=== PATIENT | male | born 1935 | race Caucasian/White ===

== ENCOUNTER 2016-12-19 18:42 | Emergency (ER) | payer MEDICARE ==
[~2016-12-19] VITALS: Ht 180.3 cm; Wt 74.8 kg
[~2016-12-19 18:42] MED LIST: ALLO100T PO; FURO-81 PO; HYDR-3014 PO; LISI-410 PO; POTA20TA14 PO; TAMS0.4C2 PO
--- NOTE | 2016-12-19 18:47 | NUR ---
ct patient to ct
--- NOTE | 2016-12-19 18:54 | NUR ---
RETURN TO ROOM PATEINT RETURNED TO ROOM
[2016-12-19 19:10] LABS: BASOPHIL % 0.7 % (0.0-0.2); EOSINOPHIL # 0.1 10^3/uL (0.0-0.2); EOSINOPHIL % 2.2 % (0.0-5.0); HEMATOCRIT 42.1 % (37.0-53.0); HEMOGLOBIN 14.5 g/dL (13.9-16.3); LYMPHOCYTES # 2.1 10^3/uL (1.0-4.8); MEAN CELL HGB 31.7 pg (26-34); MEAN CELL HGB CONCENTRATION 34.4 g/dL (33-37); MEAN CORP VOLUME 92.1 fL (78-100); MEAN PLATELET VOLUME 9.2 fL (7.8-11.0); MONOCYTES # 0.6 10^3/uL (0.3-0.8); MONOCYTES % 12.7 % (5.0-12.0); NEUTROPHIL # 1.7 10^3/uL (1.8-7.7); RED CELL DISTRIBUTION WIDTH 12.8 % (11.5-14.5); WHITE BLOOD CELL 4.6 10^3/uL (4.5-11.0)
--- NOTE | 2016-12-19 19:24 | DIREP ---
PROCEDURE:CHEST 1 VIEW COMPARISON:[facility], CR, XRAY CHEST 2 VWS, 04/12/2016, 04:43 PM. INDICATIONS:CVA R FINDINGS: LUNGS/PLEURA:No significant pulmonary parenchymal abnormalities. No effusions. Lungs are clear. No pneumonia, heart failure or effusions are seen. VASCULATURE:Normal. Unremarkable pulmonary vasculature. CARDIAC:Normal. No cardiac silhouette abnormality or cardiomegaly. Bipolar pacemaker from the left side. MEDIASTINUM:Normal. No visible mass or adenopathy. BONES:Significant DJD in both shoulders. Question chronic subluxation or dislocation with deformity of the right humeral head fracture of the midshaft of the left clavicle, unchanged since the last study. OTHER:Negative. CONCLUSION:No active disease. No change since last study. Dictated by: Emmanuel Sesay MD on 12/19/2016 at 07:23 PM
--- NOTE | 2016-12-19 19:32 | DIREP ---
PROCEDURE:CT HEAD OR BRAIN W/O CONTRAST COMPARISON:[facility], CT, CT HEAD BRAIN W/O CONTRAST, 11/29/2015, 02:03 PM. [facility], CT, CT HEAD BRAIN W/O CONTRAST, 04/12/2016, 04:44 PM. INDICATIONS:CVA R TECHNIQUE:CT images were created without intravenous contrast. The study was reviewed on brain, subdural and bone windows. FINDINGS: VENTRICLES:Ventriculomegaly with moderate atrophy and moderate white matter changes in the periventricular and the subcortical white matter which may be secondary to small vessel disease and old aging. CEREBRUM:Ectatic internal carotid arteries as well as the vertebrobasilar arteries. No evidence for unilateral hyperdense MCA sign is seen. No hyperdense venous sinus, effacement of sulci, loss of insular cortex or loss of lenticular nucleus is seen. Focal leukomalacia identified adjacent to the left lateral ventricles, question old ischemic change. This appears to be unchanged since last study of 04/12/2016. Focal infarct is also seen in the left parasagittal parietal convexity as seen on image number 25. No evidence for an acute infarct, bleed or mass lesion is seen. No acute or chronic epidural, subdural or subarachnoid hemorrhage is seen. No edema, midline shift or increased intracranial pressure is seen. Calcifications in the left basal ganglia. CEREBELLUM:Negative. BRAINSTEM:Negative. BASAL CISTERNS:Negative. HEMORRHAGE:No MASS LESION:No ACUTE INFARCT:No SKULL:Normal. SINUSES:Normal. OTHER:None CONCLUSION:Old infarct adjacent to the left lateral ventricle and in the left parietal convexity. No acute infarct, bleed or mass lesion is seen. No significant change since last study of 04/12/2016. Suggest a follow-up MRI of the brain. Dictated by: Emmanuel Sesay MD on 12/19/2016 at 07:27 PM
[2016-12-19 19:36] LABS: ALANINE AMINOTRANSFERASE 19 U/L (12-78); ALKALINE PHOSPHATASE 91 U/L (50-136); ASPARTATE AMINO TRANSFERASE 20 U/L (0-35); CALCIUM 8.8 mg/dL (8.4-10.5); CARBON DIOXIDE 29.6 mmol/L (20.0-32); GLUCOSE 98 mg/dL (70-110)
--- NOTE | 2016-12-19 19:48 | ER.PDOC ---
General Chief Complaint: Stroke Symptoms Stated Complaint: LOSS OF VISION IN LEFT EYE Time seen by MD: 19:45 Source: patient Exam Limitations: no limitations History of Present Illness Initial Comments Loss of vision in the left eye about 6 hours ago. Things appearing blurry. No new weakness. Severity: moderate Usually: orientedx3 Allergies: Coded Allergies: No Known Allergies (Unverified , 07/26/15) Home Meds Active Scripts Potassium Chloride (POTASSIUM CHLORIDE) 20 Meq Tab.er.prt, 1 TAB PO DAILY for SUPPLEMENT, #30 TAB 4 Refills Prov:EN NICOLE MD 04/16/16 Furosemide (LASIX) 20 Mg Tablet, 20 MG PO DAILY, #30 4 Refills Prov:EN NICOLE MD 04/16/16 Reported Medications Hydrocodone Bit/Acetaminophen (NORCO 10-325) 1 Each Tablet, 1 TAB PO BID Y for PAIN, #60 TAB 07/26/15 Allopurinol (ALLOPURINOL) 100 Mg Tablet, 100 MG PO BID, TABLET 07/21/15 Lisinopril (LISINOPRIL) 20 Mg Tablet, 1 TAB PO DAILY, #30 TAB 5 Refills 07/21/15 Tamsulosin Hcl (TAMSULOSIN HCL) 0.4 Mg Cap.er.24h, 1 CAP PO DAILY, #30 CAP 5 Refills 07/21/15 Past Medical History Medical History: CVA/TIA/stroke, high cholesterol Surgical History: appendectomy, hip Social History Smoking: non-smoker Alcohol Use: other Drug Use: none Review of Systems Constitutional: no symptoms reported Eyes: see HPI Respiratory: no symptoms reported Cardiovascular: no symptoms reported Gastrointestinal: no symptoms reported Genitourinary: no symptoms reported Musculoskeletal: no symptoms reported All Other Systems: Reviewed and Negative Physical Exam General Appearance: alert, no distress HEENT: no apparent trauma, ENT inspection nml, other (Sees things blurry with left eye only) Neuro/Psych: oriented x3, nml speech/cognition, nml mood/affect Cranial Nerves: nml as tested Peripheral Exam: motor nml, sensation nml, reflexes nml Neck: supple, non-tender, no carotid bruit Respiratory: no resp distress, breath sounds nml CVS: reg rate & rhythm, heart sounds nml Abdomen: non-tender, no organomegaly, no distention Skin: color nml, no rash, warm/dry Results/Orders Results/Orders Laboratory Tests Test 12/19/16 19:08 White Blood Count 4.6 10^3/uL (4.5-11.0) Red Blood Count 4.57 10^6/uL (4.50-5.90) Hemoglobin 14.5 g/dL (13.9-16.3) Hematocrit 42.1 % (37.0-53.0) Mean Corpuscular Volume 92.1 fL (78-100) Mean Corpuscular Hemoglobin 31.7 pg (26-34) Mean Corpuscular Hemoglobin Concent 34.4 g/dL (33-37) Red Cell Distribution Width 12.8 % (11.5-14.5) Platelet Count 175 10^3/uL (150-400) Mean Platelet Volume 9.2 fL (7.8-11.0) Neutrophils (%) (Auto) 37.0 % (41.0-85.0) Lymphocytes (%) (Auto) 47.0 % (24.0-44.0) Monocytes (%) (Auto) 12.7 % (5.0-12.0) Neutrophils # (Auto) 1.7 10^3/uL (1.8-7.7) Lymphocytes # (Auto) 2.1 10^3/uL (1.0-4.8) Monocytes # (Auto) 0.6 10^3/uL (0.3-0.8) Absolute Immature Granulocyte (auto 0.02 10^3 u/L (0-2) Eosinophils % 2.2 % (0.0-5.0) Basophils % 0.7 % (0.0-0.2) Basophils # 0.0 10^3/uL (0.0-0.1) Eosinophil Count 0.1 10^3/uL (0.0-0.2) Prothrombin Time 11.1 SEC (9.8-11.9) Prothromb Time International Ratio 1.0 Activated Partial Thromboplast Time 26.7 SEC (24.67-30.72) Sodium Level 138 mmol/L (132-145) Potassium Level 4.1 mmol/L (3.6-5.2) Chloride Level 102.0 mmol/L (96-109) Carbon Dioxide Level 29.6 mmol/L (20.0-32) Anion Gap 10.5 Blood Urea Nitrogen 17 mg/dL (7-18) Creatinine 1.49 mg/dL (0.59-1.40) Estimated GFR () 54.5 BUN/Creatinine Ratio 11.0 Glucose Level 98 mg/dL (70-110) Calculated Osmolality 287.0 Calcium Level 8.8 mg/dL (8.4-10.5) Total Bilirubin 0.6 mg/dL (0.2-1.0) Aspartate Amino Transf (AST/SGOT) 20 U/L (0-35) Alanine Aminotransferase (ALT/SGPT) 19 U/L (12-78) Alkaline Phosphatase 91 U/L (50-136) Total Creatine Kinase 81 U/L (39-308) Creatine Kinase MB 1.4 ng/mL (0.5-3.6) Troponin I < 0.02 ng/mL (0.00-0.05) Total Protein 6.7 g/dL (6.4-8.2) Albumin 3.8 g/dL (3.4-5.0) Globulin 2.9 Percent Immature Gran (Cell Imm) 0.40 % (0.00-0.50) Progress Progress Spoke to Dr. Mcclendon with Tele stroke, recommended that patient be admitted for MRI/MRA and further Neurological evaluation. Patient symptoms started over 6 hours ago. EKG/XRAY/CT/US EKG Comments: Normal XRAY: chest (Nothing acute) CT Comments: No acute intracranial abnormality Departure Time of Disposition: 21:46 Disposition: 02 XFER SHT-TRM HOSP Impression: Primary Impression: CVA (cerebral vascular accident) Qualified Codes: I63.9 - Cerebral infarction, unspecified Condition: Stable Referrals: NORMA COSTA DO (PCP) PRIMARY CARE PROVIDER Comments Transfer to [facility] ED for Dr. Venita GAMING,ASPEN Fowler MD Dec 19, 2016 19:48
--- NOTE | 2016-12-19 20:39 | NUR ---
DR BONNIE SHAWA SPEAKING WITH DR NICOLE , ADMISSION DEFERED TO HOSPITALIST
--- NOTE | 2016-12-19 20:40 | NUR ---
DR MARISELA CLAIRE MBA CALLED DR ANTONIO, LEFT MESSAGE
--- NOTE | 2016-12-19 21:00 | NUR ---
DR MARISELA ANTONIO RECOMMENDS CALLING [facility]
--- NOTE | 2016-12-19 21:05 | NUR ---
TELESTROKE DR GAMING SPEAKING WITH TELESTROKE
--- NOTE | 2016-12-19 21:10 | NUR ---
TELESTROKE RECOMMENDATION RECOMMENDS NO INTERVENTION AT THIS TIME
--- NOTE | 2016-12-19 21:11 | NUR ---
DR MARISELA CLAIRE MBA SLEAKING WITH DR ANTONIO , PATEINT TO BE TRANSFERED TO [facility]
--- NOTE | 2016-12-19 21:20 | NUR ---
[facility] SPEAKING WITH [facility] , DR MONTENEGRO ACCEPTS
--- NOTE | 2016-12-19 21:42 | NUR ---
ems called ems for transfer to [facility]
[2016-12-19] MEDS ORDERED: ASPIRIN ONE (21:52)
[2016-12-19] MEDS ORDERED: ASPIRIN PO STA (21:56)
--- NOTE | 2016-12-19 22:19 | NUR ---
[facility] HERE FOR TRANSFER , REPORT GIVEN
[2016-12-19 22:20] VITALS: BP 160/77
== END 2016-12-19 22:20 | disposition short-term general hospital (02) ==
LOC: ER 18:42
DX: I63.9 Cerebral infarction, unspecified (principal); E78.00 Pure hypercholesterolemia, unspecified; H53.8 Other visual disturbances; Z86.73 Personal history of transient ischemic attack (TIA), and cerebral infarction without residual deficits; Z79.899 Other long term (current) drug therapy
CPT/HCPCS: 70450; 71010; 80053; 82550; 82553; 84484; 85025; 85610; 85730; 93005; 99285

== ENCOUNTER → 2016-12-20 | Outpatient (CLI) | payer MEDICARE ==
--- NOTE | 2016-12-23 16:02 | DIREP ---
PROCEDURE: CAROTID ULTRASOUND COMPARISON: [facility], CT, CT HEAD BRAIN W/O CONTRAST, 2016, 06:54 PM. INDICATIONS: HTN, VISION LOSS TECHNIQUE: Sonographic evaluation of carotid and vertebral arteries was performed together with grayscale, color-flow, and spectral analysis. FINDINGS: RIGHT CCA: PROX: 93.9 cm/s MID: 90.1 cm/s RIGHT ICA: PROX: 59.51 cm/s MID: 65.08 cm/s DIST: 52.25 cm/s RIGHT ECA: 62.72 cm/s RIGHT ICA/CC: 0.72 RIGHT VERTEBRAL: 30.08 cm/s IMAGES: Mild plaque formation identified involving the origin of the internal carotid artery. No critical stenosis is seen. LEFT CCA: PROX: 91.4 cm/s MID: 110.3 cm/s DIST: 63.3 cm/s LEFT ICA: PROX: 67.34 cm/s MID: 60.72 cm/s DIST: 54.61 cm/s LEFT ECA: 52.60 cm/s LEFT ICA/CCA: 0.72 LEFT VERTEBRAL: 53.10 cm/s IMAGES: Mild plaque formation seen involving the mid common carotid artery as well as the origin of the internal carotid artery. No critical stenosis is seen. CONCLUSION: Satisfactory ic/cc ratios. Mild plaque formation involving the origin of the internal carotid arteries bilaterally. No critical stenosis is seen. Diameter Stenosis (%) ICA Peak Systolic Velocity (cm/s) ICA/CCA Ratio Normal <125 <2.0 <50 <125 <2.0 50-69 125-230 2-4 70 to near occlusion >230 >4 J Ultrasound Med 2005; 24:[id number] ld Dictated by: JUAN A Physician on 12/20/2016 at 04:00 PM
== END | disposition home or self-care (01) ==
LOC: RAD 13:13
PROVIDERS: ATTEND Nurse Practitioner
DX: I25.10 Atherosclerotic heart disease of native coronary artery without angina pectoris (principal); I10 Essential (primary) hypertension; H53.122 Transient visual loss, left eye
CPT/HCPCS: 93880

== ENCOUNTER 2017-02-26 11:39 | Emergency (ER) | payer MEDICARE ==
[~2017-02-26] VITALS: Ht 185.4 cm; Wt 85.7 kg
[2017-02-26] MEDS ORDERED: LOSA25TA5 PO (11:47)
--- NOTE | 2017-02-26 11:49 | NUR ---
ARRIVAL PATIENT ARRIVED TO ED3 VIA GURNEY BY [facility], C/O OF WEAKNESS AND DIZZINESS TODAY, DENIES ANY PAIN, DIZZINESS COMES AND GOES BUT WORSE TODAY, EMS CALLED BY NEIGHBORS, PATIENT BROUGHT TO ED FOR FUTHER EVAL, NO DISTRESS NOTED.
[2017-02-26 12:03] LABS: BILIRUBIN,URINE NEGATIVE (NEGATIVE); UROBILINOGEN,URINE NORMAL (NEGATIVE)
[2017-02-26 12:03] LABS: BASOPHIL % 0.4 % (0.0-0.2); EOSINOPHIL # 0.1 10^3/uL (0.0-0.2); EOSINOPHIL % 1.8 % (0.0-5.0); HEMOGLOBIN 13.4 g/dL (13.9-16.3); LYMPHOCYTES # 1.8 10^3/uL (1.0-4.8); LYMPHOCYTES % 39.6 % (24.0-44.0); MEAN CELL HGB 31.3 pg (26-34); MEAN CELL HGB CONCENTRATION 33.5 g/dL (33-37); MEAN CORP VOLUME 93.5 fL (78-100); MEAN PLATELET VOLUME 8.9 fL (7.8-11.0); MONOCYTES # 0.5 10^3/uL (0.3-0.8); NEUTROPHIL # 2.1 10^3/uL (1.8-7.7); NEUTROPHILS % 45.8 % (41.0-85.0); RED CELL DISTRIBUTION WIDTH 13.1 % (11.5-14.5); WHITE BLOOD CELL 4.5 10^3/uL (4.5-11.0)
--- NOTE | 2017-02-26 12:03 | NUR ---
LAB LAB TO ROOM FOR BLOOD DRAW.
[2017-02-26 12:06] LABS: APPEARANCE,URINE CLEAR (CLEAR); UA COLOR YELLOW (YELLOW)
--- NOTE | 2017-02-26 12:26 | NUR ---
CAT SCAN PATIENT TO CAT SCAN VIA GURHUMERA WITH [facility] FROM RADIOLOGY.
[2017-02-26 12:28] LABS: ALANINE AMINOTRANSFERASE 21 U/L (12-78); ALKALINE PHOSPHATASE 81 U/L (50-136); ASPARTATE AMINO TRANSFERASE 23 U/L (0-35); GLUCOSE 129 mg/dL (70-110)
--- NOTE | 2017-02-26 12:38 | NUR ---
CAT SCAN PATIENT BACK FROM CAT SCAN.
--- NOTE | 2017-02-26 12:47 | DIREP ---
PROCEDURE:CHEST X-RAY, AP PORTABLE COMPARISON:[facility], CR, XRAY CHEST SINGLE VW, 12/19/2016, 06:24 PM. [facility], CR, XRAY CHEST SINGLE VW, 11/29/2015, 01:38 PM. INDICATIONS:WEAKNESS AND DIZZINESS FINDINGS: LUNGS/PLEURA:Mild hyperexpansion of lungs without focal airspace opacity. VASCULATURE:Normal. Unremarkable pulmonary vasculature. CARDIAC:The heart is mildly enlarged. A pacemaker is in place from a left subclavian approach. MEDIASTINUM:Normal. No visible mass or adenopathy. BONES:Severe degenerative changes in both shoulders with old fracture of the left clavicle. OTHER:Negative. CONCLUSION: 1. Mild cardiomegaly. No evidence of congestive failure. 2. No active pulmonary disease. 3. Severe degenerative changes of both shoulders. Dictated by: Barney Kim MD on 02/26/2017 at 12:43 PM
--- NOTE | 2017-02-26 13:07 | DIREP ---
PROCEDURE:CT HEAD WITHOUT CONTRAST TECHNIQUE:Axial cuts were obtained through the head, without intravenous contrast material. The images were viewed at brain and bone settings. COMPARISON:[facility], CT, CT HEAD BRAIN W/O CONTRAST, 04/12/2016, 04:44 PM. [facility], CT, CT HEAD BRAIN W/O CONTRAST, 12/19/2016, 06:54 PM. INDICATIONS:DIZZINESS FINDINGS: VENTRICLES:There is mild generalized prominence of the ventricles, sulci, and cisterns. There is no hydrocephalus. CEREBRUM:There is moderate patchy low density in the periventricular white matter of both cerebral hemispheres. There is no CT evidence of mass, hemorrhage, or acute infarct. Old infarctions are seen involving the left periventricular white matter with extending into the centrum semi ovale and in the left occipital lobe. CEREBELLUM:Mild volume loss. BRAINSTEM:Normal. SKULL:Normal. SINUSES:Normal. OTHER:Atherosclerotic calcifications of the carotid siphons are noted. CONCLUSION: 1. Mild generalized atrophy. No evidence of acute abnormality. Old left-sided infarctions noted. 2. Moderate chronic white matter ischemic change. Dictated by: Barney Kim MD on 02/26/2017 at 01:01 PM
--- NOTE | 2017-02-26 13:20 | NUR ---
STATUS PATIENT SITTING UP IN THE BED, FAMILY AT BEDSIDE, NO DISTRESS NOTED.
--- NOTE | 2017-02-26 13:25 | ER.PDOC ---
General Chief Complaint: General Complaint Stated Complaint: WEAKNESS/DIZZINESS TRAVEL OUT OF US: No Time seen by MD: 12:37 Source: patient, EMS Exam Limitations: no limitations History of Present Illness Initial Comments felt weak at home Timing/Duration: 1-3 hours Severity: mild Associated Symptoms: denies symptoms Allergies: Coded Allergies: No Known Allergies (Unverified , 07/26/15) Home Meds Active Scripts Potassium Chloride (POTASSIUM CHLORIDE) 20 Meq Tab.er.prt, 1 TAB PO DAILY for SUPPLEMENT, #30 TAB 4 Refills Prov:EN NICOLE MD 04/16/16 Furosemide (LASIX) 20 Mg Tablet, 20 MG PO DAILY, #30 4 Refills Prov:EN NICOLE MD 04/16/16 Reported Medications Losartan Potassium (LOSARTAN POTASSIUM) 25 Mg Tablet, 1 TAB PO DAILY, #90 TAB 3 Refills 02/26/17 Allopurinol (ALLOPURINOL) 100 Mg Tablet, 100 MG PO BID, TABLET 07/21/15 Tamsulosin Hcl (TAMSULOSIN HCL) 0.4 Mg Cap.er.24h, 1 CAP PO DAILY, #30 CAP 5 Refills 07/21/15 Discontinued Reported Medications Hydrocodone Bit/Acetaminophen (NORCO 10-325) 1 Each Tablet, 1 TAB PO BID Y for PAIN, #60 TAB 07/26/15 Lisinopril (LISINOPRIL) 20 Mg Tablet, 1 TAB PO DAILY, #30 TAB 5 Refills 07/21/15 Past Medical History Medical History: cardiac problems, congestive heart failure, hypertension Surgical History: hip, knee, pacemaker/ICD, tonsillectomy Family History Significant Family History: no pertinent family hx Social History Smoking: non-smoker Alcohol Use: none Drug Use: none Review of Systems Constitutional: denies fever EENTM: denies blurred vision Respiratory: denies cough Cardiovascular: denies chest pain Gastrointestinal: denies abdominal pain Genitourinary: denies discharge Musculoskeletal: denies back pain Psychiatric/Neurological: anxiety All Other Systems: Reviewed and Negative Physical Exam General Appearance: No Apparent Distress, Cachetic EENT: eyes nml inspection, nml ENT inspection Neck: Non-Tender, Full Range of Motion Respiratory: chest non-tender, lungs clear CVS: reg rate & rhythm, no murmur Gastrointestinal: Normal Bowel Sounds Rectal: Normal Exam Extremities: Normal Range of Motion Neurologic/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: 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 II-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 NML as Tested Skin: Normal Color Lymphatic: No Adenopathy Results/Orders Results/Orders Laboratory Tests Test 02/26/17 11:56 02/26/17 12:00 Urine Collection Type VOID Urine Color YELLOW (YELLOW) Urine Appearance CLEAR (CLEAR) Urine Bilirubin NEGATIVE MG/DL (NEGATIVE) Urine Ketones NEGATIVE (NEGATIVE) Urine Specific [place] 1.005 (1.005-1.035) Urine pH 5 (5.0-6.0) Urine Protein NEGATIVE (NEGATIVE) Urine Urobilinogen NORMAL (NEGATIVE) Urine Nitrate NEGATIVE (NEGATAIVE) Urine Leukocyte Esterase NEGATIVE (NEGATIVE) Urine Blood NEGATIVE (NEGATIVE) Urine Glucose NORMAL (NEGATIVE) White Blood Count 4.5 10^3/uL (4.5-11.0) Red Blood Count 4.28 10^6/uL (4.50-5.90) Hemoglobin 13.4 g/dL (13.9-16.3) Hematocrit 40.0 % (37.0-53.0) Mean Corpuscular Volume 93.5 fL (78-100) Mean Corpuscular Hemoglobin 31.3 pg (26-34) Mean Corpuscular Hemoglobin Concent 33.5 g/dL (33-37) Red Cell Distribution Width 13.1 % (11.5-14.5) Platelet Count 164 10^3/uL (150-400) Mean Platelet Volume 8.9 fL (7.8-11.0) Neutrophils (%) (Auto) 45.8 % (41.0-85.0) Lymphocytes (%) (Auto) 39.6 % (24.0-44.0) Monocytes (%) (Auto) 12.0 % (5.0-12.0) Neutrophils # (Auto) 2.1 10^3/uL (1.8-7.7) Lymphocytes # (Auto) 1.8 10^3/uL (1.0-4.8) Monocytes # (Auto) 0.5 10^3/uL (0.3-0.8) Absolute Immature Granulocyte (auto 0.02 10^3 u/L (0-2) Eosinophils % 1.8 % (0.0-5.0) Basophils % 0.4 % (0.0-0.2) Basophils # 0.0 10^3/uL (0.0-0.1) Eosinophil Count 0.1 10^3/uL (0.0-0.2) Prothrombin Time 11.0 SEC (9.8-11.9) Prothrombin Time INR (Non-Therap) 1.0 D-Dimer 0.92 mg/L (0.19-0.41) Sodium Level 134 mmol/L (132-145) Potassium Level 4.0 mmol/L (3.6-5.2) Chloride Level 99.0 mmol/L (96-109) Carbon Dioxide Level 26.0 mmol/L (20.0-32) Anion Gap 13.0 Blood Urea Nitrogen 17 mg/dL (7-18) Creatinine 1.28 mg/dL (0.59-1.40) Estimated GFR () 64.9 (>/=60) BUN/Creatinine Ratio 13.0 Glucose Level 129 mg/dL (70-110) Calcium Level 9.0 mg/dL (8.4-10.5) Total Bilirubin 0.7 mg/dL (0.2-1.0) Aspartate Amino Transf (AST/SGOT) 23 U/L (0-35) Alanine Aminotransferase (ALT/SGPT) 21 U/L (12-78) Alkaline Phosphatase 81 U/L (50-136) Total Creatine Kinase 135 U/L (39-308) Creatine Kinase MB 2.1 ng/mL (0.5-3.6) Troponin I < 0.02 ng/mL (0.00-0.05) Pro-B-Type Natriuretic Peptide 194 pg/mL (0-450) Total Protein 6.5 g/dL (6.4-8.2) Albumin 3.6 g/dL (3.4-5.0) Globulin 2.9 Percent Immature Gran (Cell Imm) 0.40 % (0.00-0.50) Helicobacter pylori Screen NEGATIVE (NEGATIVE) Progress Progress labs neg EKG/XRAY/CT/US EKG Comments: paced 84 XRAY: chest XRAY Comments: neg CT Comments: head neg Departure Time of Disposition: 13:25 Disposition: 01 HOME, SELF-CARE Impression: Primary Impression: Weakness Condition: Stable Referrals: NORMA COSTA DO (PCP) PRIMARY CARE PROVIDER JAYME ALMARAZ Dr., MD Feb 26, 2017 13:25
--- NOTE | 2017-02-26 13:41 | NUR ---
IV IV D/C'D TIP INTACT, NO SIGN OF INFILTRATION NOTED, FAMILY AT BEDSIDE, NO DISTRESS NOTED.
--- NOTE | 2017-02-26 13:42 | NUR ---
DISCHARGE PATIENT ASSISTED WITH CLOTHING BY [facility], TRANSFERED TO W/C X1 ASSIST THEN TO POV, NO DISTRESS NOTED, FAMILY TOLD TO FOLLOW UP WITH PCP ON TUESDAY OR RETURN TO ED NEEDED.
[2017-02-26 13:50] VITALS: BP 153/80
== END 2017-02-26 13:43 | disposition home or self-care (01) ==
LOC: ER 11:39 → EDBD 11:39 → ER 13:43
DX: R53.1 Weakness (principal); I11.0 Hypertensive heart disease with heart failure; I50.9 Heart failure, unspecified; F41.9 Anxiety disorder, unspecified; Z95.0 Presence of cardiac pacemaker
CPT/HCPCS: 36415; 70450; 71010; 80053; 81002; 82550; 82553; 83880; 84484; 85025; 85379; 85610; 86677; 93005; 99285

== ENCOUNTER 2017-06-08 18:56 | Inpatient (IN) | payer MEDICARE ==
[~2017-06-08] VITALS: Ht 182.9 cm; Wt 76.7 kg
[2017-06-08] VITALS (9 sets, daily range): BP systolic 113–151; BP diastolic 85–105
[~2017-06-08 18:56] MED LIST changes: -HYDR-3014 PO; +HYDR-3105 PO; +LOSA25TA5 PO
--- NOTE | 2017-06-08 19:09 | ER.PDOC ---
General Chief Complaint: Stroke Symptoms Stated Complaint: RIGHT ARM WEAKNESS Time seen by MD: 19:09 Source: patient, EMS Exam Limitations: no limitations History of Present Illness Timing/Duration: 1/2 hour, other (81 yo male states sudden onset of RUE weakness, began while making peanut butter sandwich. Dropped knife, could not move entire R arm. Lives alone, is only fair historian, does not know meds or what they are for. ? hx HTN, heart problems, OA. Denies previous stroke history. States arm weakness getting better since its onset. ) Severity: mild New Weakness: RUE Altered Sensation: RUE Usually: orientedx3 (no other symptoms reported. ) Allergies: Coded Allergies: No Known Allergies (Unverified , 07/26/15) Home Meds Active Scripts Furosemide (LASIX) 20 Mg Tablet, 20 MG PO DAILY, #30 4 Refills Prov:EN NICOLE MD 04/16/16 Reported Medications Clonidine Hcl (CLONIDINE HCL) 0.1 Mg Tablet, 0.1 MG PO BID, TABLET 06/08/17 Tamsulosin Hcl (TAMSULOSIN HCL) 0.4 Mg Cap.er.24h, 1 CAP PO DAILY, #30 CAP 5 Refills 07/21/15 Discontinued Reported Medications Losartan Potassium (LOSARTAN POTASSIUM) 25 Mg Tablet, 1 TAB PO DAILY, #90 TAB 3 Refills 02/26/17 Allopurinol (ALLOPURINOL) 100 Mg Tablet, 100 MG PO BID, TABLET 07/21/15 Discontinued Scripts Potassium Chloride (POTASSIUM CHLORIDE) 20 Meq Tab.er.prt, 1 TAB PO DAILY for SUPPLEMENT, #30 TAB 4 Refills Prov:EN NICOLE MD 04/16/16 Past Medical History Medical History: coronary artery disease, cardiac problems, renal disease, other (? gout, osteoarthritis "problems urinating" sounds like BPH. No family members present to correlate any of this. ) Surgical History: hip, knee, pacemaker/ICD, tonsillectomy Social History Smoking: non-smoker Alcohol Use: rarely Drug Use: none Review of Systems All Other Systems: Reviewed and Negative Physical Exam General Appearance: alert, no distress, other (very elderly, vague historian, male in NAD) HEENT: no apparent trauma, EOM's intact, no nystagmus, PERRL Neuro/Psych: oriented x3, nml speech/cognition Cerebellar: nml as tested Peripheral Exam: other (RUE weakness, 3/5, otherwise normal motor exam throughout) Neck: supple Respiratory: no resp distress, breath sounds nml CVS: reg rate & rhythm, heart sounds nml Abdomen: non-tender Skin: color nml, no rash Extremities: non-tender, nml ROM Results/Orders Results/Orders Laboratory Tests Test 06/08/17 00:00 06/08/17 19:10 Urine Collection Type UNKNOWN Urine Color YELLOW (YELLOW) Urine Appearance CLEAR (CLEAR) Urine Bilirubin NEGATIVE MG/DL (NEGATIVE) Urine Ketones NEGATIVE (NEGATIVE) Urine Specific [place] 1.015 (1.005-1.035) Urine pH 6 (5.0-6.0) Urine Protein NEGATIVE (NEGATIVE) Urine Urobilinogen NORMAL (NEGATIVE) Urine Nitrate NEGATIVE (NEGATAIVE) Urine Leukocyte Esterase NEGATIVE (NEGATIVE) Urine Blood NEGATIVE (NEGATIVE) Urine Glucose NORMAL (NEGATIVE) White Blood Count 4.5 10^3/uL (4.5-11.0) Red Blood Count 4.37 10^6/uL (4.50-5.90) Hemoglobin 13.4 g/dL (13.9-16.3) Hematocrit 41.1 % (37.0-53.0) Mean Corpuscular Volume 94.1 fL (78-100) Mean Corpuscular Hemoglobin 30.7 pg (26-34) Mean Corpuscular Hemoglobin Concent 32.6 g/dL (33-37) Red Cell Distribution Width 13.1 % (11.5-14.5) Platelet Count 213 10^3/uL (150-400) Mean Platelet Volume 9.4 fL (7.8-11.0) Neutrophils (%) (Auto) 33.8 % (41.0-85.0) Lymphocytes (%) (Auto) 48.8 % (24.0-44.0) Monocytes (%) (Auto) 13.5 % (5.0-12.0) Neutrophils # (Auto) 1.5 10^3/uL (1.8-7.7) Lymphocytes # (Auto) 2.2 10^3/uL (1.0-4.8) Monocytes # (Auto) 0.6 10^3/uL (0.3-0.8) Absolute Immature Granulocyte (auto 0.02 10^3 u/L (0-2) Eosinophils % 3.3 % (0.0-5.0) Basophils % 0.2 % (0.0-0.2) Basophils # 0.0 10^3/uL (0.0-0.1) Eosinophil Count 0.2 10^3/uL (0.0-0.2) Prothrombin Time 10.8 SEC (9.8-11.9) Prothrombin Time INR (Non-Therap) 1.0 Activated Partial Thromboplast Time 26.8 SEC (24.67-30.72) Sodium Level 136 mmol/L (132-145) Potassium Level 3.4 mmol/L (3.6-5.2) Chloride Level 100.0 mmol/L (96-109) Carbon Dioxide Level 30.5 mmol/L (20.0-32) Anion Gap 8.9 Blood Urea Nitrogen 13 mg/dL (7-18) Creatinine 1.20 mg/dL (0.59-1.40) Estimated GFR () 70.0 (>/=60) BUN/Creatinine Ratio 10.0 Glucose Level 127 mg/dL (70-110) Calcium Level 9.2 mg/dL (8.4-10.5) Total Bilirubin 0.4 mg/dL (0.2-1.0) Aspartate Amino Transf (AST/SGOT) 23 U/L (0-35) Alanine Aminotransferase (ALT/SGPT) 22 U/L (12-78) Alkaline Phosphatase 91 U/L (50-136) Total Creatine Kinase 91 U/L (39-308) Creatine Kinase MB 1.9 ng/mL (0.5-3.6) Troponin I < 0.02 ng/mL (0.00-0.05) Total Protein 7.2 g/dL (6.4-8.2) Albumin 3.9 g/dL (3.4-5.0) Globulin 3.3 Percent Immature Gran (Cell Imm) 0.40 % (0.00-0.50) Progress Progress CT head: chronic changes, 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 No calvarial fracture. CXR: no acute disease. Labs unremarkable, except glucose 127, ? if no neurology here, [place]. Will have to call hospitalist first. Dr. Fred Li, c/b 844 hrs: consult [facility], then likely keep here. Consulted them--suggested ASA now and if any worsening s/s, call them back. Carotid US and other workup can be done here. EKG/XRAY/CT/US EKG: NSR, no ST T wave changes #2 EKG: NSR, rhythm, no ST T wave changes Reason/Comments: no acute ischemic changes Departure Time of Disposition: 20:51 Disposition: 09 ADMITTED INPATIENT Impression: Primary Impression: TIA (transient ischemic attack) Qualified Codes: G45.9 - Transient cerebral ischemic attack, unspecified Condition: Stable Referrals: NORMA COSTA DO (PCP) PRIMARY CARE PROVIDER Duration or Time Spent with Pa: 20 RAMIRO FLOR MD Jun 08, 2017 19:09
--- NOTE | 2017-06-08 19:12 | PCM.EKG ---
[facility] Test Date: 2017-06-08 Test Time: 19:10:43 Pat Name: DIONICIO BONILLA Department: Room: ICU5 Gender: M Procurement Inspector: CYNTHIA : [id number] Requested By: JAYME ALMARAZ Order Number: [id number] Reading MD: Paige Kingston Measurements Intervals [place] Rate: 88 P: 57 IN: 200 QRS: 1 QRSD: 104 T: 24 QT: 362 QTc: 438 Interpretive Statements Normal sinus rhythm Normal ECG No previous ECG available for comparison Electronically Signed On 06-09-2017 0:54:54 GROUND SUPPORT AGENT by Paige Kingston Please click the below link to view image of tracing.
[2017-06-08 19:18] LABS: BASOPHIL % 0.2 % (0.0-0.2); EOSINOPHIL # 0.2 10^3/uL (0.0-0.2); EOSINOPHIL % 3.3 % (0.0-5.0); HEMOGLOBIN 13.4 g/dL (13.9-16.3); LYMPHOCYTES # 2.2 10^3/uL (1.0-4.8); LYMPHOCYTES % 48.8 % (24.0-44.0); MEAN CELL HGB 30.7 pg (26-34); MEAN CELL HGB CONCENTRATION 32.6 g/dL (33-37); MEAN CORP VOLUME 94.1 fL (78-100); MEAN PLATELET VOLUME 9.4 fL (7.8-11.0); MONOCYTES # 0.6 10^3/uL (0.3-0.8); MONOCYTES % 13.5 % (5.0-12.0); NEUTROPHIL # 1.5 10^3/uL (1.8-7.7); NEUTROPHILS % 33.8 % (41.0-85.0); RED CELL DISTRIBUTION WIDTH 13.1 % (11.5-14.5); WHITE BLOOD CELL 4.5 10^3/uL (4.5-11.0)
--- NOTE | 2017-06-08 19:29 | NUR ---
REPORT PATIENT LIVES AT HOME BY HIMSELF, USES A WALKER. PATIENT WAS IN KITCHEN MAKING SUPPER,FELT WEAKNESS IN HIS RIGHT ARM AND DROPPED CRACKER. PATIENT CALLED FAMILY AND EMS WAS CALLED.
--- NOTE | 2017-06-08 19:38 | DIREP ---
PROCEDURE:CT HEAD OR BRAIN W/O CONTRAST COMPARISON:[facility], CT, CT HEAD BRAIN W/O CONTRAST, 12/19/2016, 06:54 PM. [facility], CT, CT HEAD BRAIN W/O CONTRAST, 02/26/2017, 12:36 PM. INDICATIONS:POSS CVA TECHNIQUE:CT images were created without intravenous contrast. FINDINGS: VENTRICLES:There is moderate prominence of the ventricles and cortical sulci consistent with age related involutional changes. CEREBRUM:Moderate foci of diminished attenuation in the supratentorial white matter consistent with moderate leukoaraiosis. CEREBELLUM:Negative. BRAINSTEM:Negative. BASAL CISTERNS:Negative. HEMORRHAGE:No MASS LESION:No ACUTE INFARCT:No SKULL:Normal, except for small metallic left orbital abnormality, without change. SINUSES:Normal. OTHER:Remote left basal ganglia and periventricular white matter infarction. Remote right temporal lobe infarct. Vascular calcification. Ununited anterior arch of C1. CONCLUSION:Chronic changes. Ununited anterior arch of C1 suggesting fracture. No acute intracranial abnormality. No calvarial fracture. Dictated by: Isidro Lr M.D. on 06/08/2017 at 07:33 PM
--- NOTE | 2017-06-08 19:40 | DIREP ---
PROCEDURE:CHEST 1 VIEW COMPARISON:[facility], CR, XRAY CHEST SINGLE VW, 02/26/2017, 12:24 PM. INDICATIONS:POSS CVA FINDINGS: LUNGS/PLEURA:No significant pulmonary parenchymal abnormalities. No effusions. VASCULATURE:Normal. Unremarkable pulmonary vasculature. CARDIAC:Normal. No cardiac silhouette abnormality or cardiomegaly. MEDIASTINUM:Atherosclerotic aorta with no visible aneurysm. BONES:Degenerative changes of the spine and shoulders. OTHER:Left subclavian pacer. Healed left clavicle fracture. CONCLUSION:No acute cardiopulmonary disease. No change. Dictated by: Isidro Lr M.D. on 06/08/2017 at 07:38 PM
[2017-06-08 19:43] LABS: ALANINE AMINOTRANSFERASE 22 U/L (12-78); ALKALINE PHOSPHATASE 91 U/L (50-136); ASPARTATE AMINO TRANSFERASE 23 U/L (0-35); CALCIUM 9.2 mg/dL (8.4-10.5); CARBON DIOXIDE 30.5 mmol/L (20.0-32); GLUCOSE 127 mg/dL (70-110)
[2017-06-08] MEDS ORDERED: CLON0.1T PO (19:48)
--- NOTE | 2017-06-08 20:24 | NUR ---
URINE COLLECTED AND TAKEN TO LAB
[2017-06-08 20:41] LABS: BILIRUBIN,URINE NEGATIVE (NEGATIVE); UROBILINOGEN,URINE NORMAL (NEGATIVE)
[2017-06-08 20:43] LABS: APPEARANCE,URINE CLEAR (CLEAR); UA COLOR YELLOW (YELLOW)
--- NOTE | 2017-06-08 20:46 | NUR ---
[facility] NOTIFIED OF FOR DR. FLOR TO KEEP PATIENT HERE.
--- NOTE | 2017-06-08 20:50 | NUR ---
DR. FLOR ON PHONE WITH [facility] STROKE PHYSICIAN
[2017-06-08] MEDS ORDERED: ASPIRIN PO STA (20:52)
[2017-06-08] MEDS ORDERED: ASPIRIN ONE (20:55)
--- NOTE | 2017-06-08 21:04 | NUR ---
ADMIT ADMIT TO ICU FOR TIA PER EDP
--- NOTE | 2017-06-08 21:12 | NUR ---
DR. ANTONIO OKAYED PATIENT TO ADMIT TO ICU
--- NOTE | 2017-06-08 21:19 | NUR ---
DR MARISELA ANTONIO IN WITH PATIENT
[2017-06-08] MEDS ORDERED: SENOKOT PO PRN (21:30)
--- NOTE | 2017-06-08 22:15 | NUR ---
DR ANTONIO ON UNIT NEW ORDERS RECEIVED AND CARRIED OUT.
--- NOTE | 2017-06-08 22:17 | NUR ---
PATIENT PRESENTED TO ER FOR LOSS OF CONTROL IN RIGHT ARM PATIENT DENIES WEAKNESS AT THIS TIME. 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 Addendum: 06/08/17 at 2226 by Jory Schafer RN - PITCHING COACH Amended: Links added.
[2017-06-08] MEDS: LIPITOR PO SCH (22:32)
[2017-06-08] MEDS: LOPRESSER PO SCH (22:33)
--- NOTE | 2017-06-08 22:35 | NUR ---
RECEIVED PATIENT FROM ER VIA WHEELCHAIR. ACCOMPANIED BY ER STAFF. PATIENT TRANSFERRED TO ICU BED WITH STANDBY ASSIST. MONITORING EQUIPMENT ATTACHED PER PROTOCOL. REPORT RECEIVED FROM ER STAFF. ASSUMING CARE OF PATIENT.
--- NOTE | 2017-06-08 22:58 | HPH ---
ADMIT DATE: 06/08/2017 PRIMARY CARE: Dr. Wright. CHIEF COMPLAINT: Right arm weakness. HISTORY OF PRESENT ILLNESS: The patient is an 81-year-old man with a past medical history significant for hypertension, BPH, hyperlipidemia, peripheral vascular disease, coronary artery disease, gout, previous CVA, who presented to the ER with complaints of right upper extremity weakness. According to him, the symptoms were onset about half an hour prior to presentation in the Emergency Room. He has had a prior stroke last year where he received TPA and was sent to a Stroke Center in [place]. He does take a baby aspirin daily. He does not take any cholesterol medications. He is only on clonidine, Lasix, and tamsulosin is his home medications. He normally is ambulatory without assistance. 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 Otherwise, he denies any acute events other than the event stated in his HPI. PAST MEDICAL HISTORY: Coronary artery disease, peripheral vascular disease, prior CVA, BPH, gout, borderline pulmonary hypertension with PA pressures of 30-35 mmHg, congestive heart failure, chronic diastolic dysfunction and chronic systolic dysfunction with last known LVEF of 35-40%, history of tobacco abuse in the past. PAST SURGICAL HISTORY: He has had pacemaker ICD placement, hip surgery, knee surgery, and tonsillectomy. ALLERGIES: NO KNOWN DRUG ALLERGIES. HOME MEDICATIONS: List includes furosemide 20 mg daily, aspirin 81 mg daily, clonidine 0.1 mg twice a day, tamsulosin 0.4 mg daily. SOCIAL HISTORY: Lives at home. He denies any tobacco use currently. He has a past history of tobacco use. Denies any illicit drug use. He does have alcohol use. He drinks about a fifth of whiskey a week. FAMILY HISTORY: Negative for early coronary artery disease or diabetes. REVIEW OF SYSTEMS: CARDIAC: Denies chest pain, shortness of breath or dyspnea on exertion. PULMONARY: No cough, sputum production or pleuritic chest pain. GASTROINTESTINAL: No nausea, vomiting, diarrhea or constipation. All else negative in 10 point review of system except as in HPI. PHYSICAL EXAMINATION: VITAL SIGNS: Upon arrival to the ER, height 182.9 cm, weight 77.1 kilograms, temperature 97.7, pulse 72, respiratory rate is 18, blood pressure 136/104, O2 saturation 94% on room air at time of exam. GENERAL: He is alert, chronic ill-appearing gentleman. HEENT: His pupils were equal, round and reactive. Sclerae is anicteric. Oropharynx, visualized portions clear. Mucous membranes are slightly dry. NECK: Supple, no lymphadenopathy. CARDIOVASCULAR: At time of exam was regular rate and rhythm with strong peripheral pulses. LUNGS: Clear bilaterally. No wheezing. ABDOMEN: Soft. Bowel sounds are present, nontender to palpation. EXTREMITIES: No cyanosis, clubbing. He does have trace lower extremity edema. NEUROLOGIC: He has some right upper extremity weakness, otherwise negative, acute and nonfocal. LABORATORY DATA: UA, pH of 6.0, specific gravity is 1.015, all else is negative. Sodium 136, potassium 3.4, chloride 100, CO2 is 30, BUN 13, creatinine 1.2, glucose 127, calcium is 9.2, total bilirubin 0.4, AST 23, ALT 22, alkaline phosphatase 91, total CK is 91, CK-MB is 1.9, troponin I is less than 0.02, total protein 7.2, albumin 3.9. CBC: White count 4.5, hemoglobin 13.4, platelets 213,000. Differential: 34% neutrophils, 49% lymphocytes, 13% monocytes. IMAGING STUDIES: Chest x-ray performed in the Emergency Room is negative for acute process. CT head performed in the Emergency Room reveals chronic changes and an ununited anterior arch of C1 with moderate focal diminished attenuation in the supratentorial white matter and prominence of ventricles and cortical sulci consistent with involutional changes. ASSESSMENT AND PLAN: The patient is an 81-year-old man here with acute CVA with hypertension, hyperlipidemia, coronary artery disease, congestive heart failure, diastolic dysfunction and systolic dysfunction, BPH, uncontrolled hypertension. 1. Neurology communications advisor was called, they did not believe he needed to be transferred, we will manage here. He has a pacemaker in place so we will not be able to do an MRI. We will get echocardiogram, he had one a year ago, and bilateral carotid ultrasounds. We will increase to full dose aspirin and statin, check a lipid panel. 2. Continue his current cardiovascular medications. We will titrate blood pressure medications for control without dropping the pressure too low since, he does have the ischemic cerebrovascular event. 3. Appropriate p.r.n. pain and nausea medications. 4. PT, OT and speech evaluation and treatment. 5. DVT prophylaxis will be with Lovenox. 6. He has anemia, likely due to chronic disease. Follow clinically. No need for transfusion. Time spent with the patient and his family member was 45 minutes, was seen in the Emergency Room. This plan was discussed with the patient. He is his own decision maker. He does understand and concur with plans. Moy Li MD DR: SEAN/bryan JOB# [id number] DICK
[2017-06-09] VITALS (54 sets, daily range): BP systolic 110–176; BP diastolic 44–116
[2017-06-09 05:43] LABS: BASOPHIL % 0.5 % (0.0-0.2); EOSINOPHIL # 0.2 10^3/uL (0.0-0.2); EOSINOPHIL % 3.4 % (0.0-5.0); HEMOGLOBIN 13.2 g/dL (13.9-16.3); LYMPHOCYTES % 45.1 % (24.0-44.0); MEAN CELL HGB 30.6 pg (26-34); MEAN CELL HGB CONCENTRATION 32.4 g/dL (33-37); MEAN CORP VOLUME 94.4 fL (78-100); MEAN PLATELET VOLUME 9.8 fL (7.8-11.0); MONOCYTES # 0.6 10^3/uL (0.3-0.8); MONOCYTES % 14.2 % (5.0-12.0); NEUTROPHIL # 1.6 10^3/uL (1.8-7.7); NEUTROPHILS % 36.3 % (41.0-85.0); RED CELL DISTRIBUTION WIDTH 13.2 % (11.5-14.5); WHITE BLOOD CELL 4.4 10^3/uL (4.5-11.0)
[2017-06-09 06:14] LABS: ALANINE AMINOTRANSFERASE 21 U/L (12-78); ALKALINE PHOSPHATASE 77 U/L (50-136); ASPARTATE AMINO TRANSFERASE 22 U/L (0-35); CALCIUM 9.2 mg/dL (8.4-10.5); CARBON DIOXIDE 30.3 mmol/L (20.0-32); CHOLESTEROL 230 mg/dL (120-240); GLUCOSE 84 mg/dL (70-110); HDL CHOLESTEROL 74 mg/dL (32-96)
[2017-06-09] MEDS ORDERED: ASPIRIN EC PO SCH (09:00)
[2017-06-09] MEDS: LOPRESSER PO SCH ×2 (09:17→21:50)
[2017-06-09] MEDS: ASPIRIN EC PO SCH (09:18)
[2017-06-09] MEDS: FLOMAX PO SCH (09:18)
[2017-06-09] MEDS: LASIX PO SCH (09:18)
[2017-06-09] MEDS: ZESTRIL PO SCH (09:18)
--- NOTE | 2017-06-09 09:30 | NUR ---
PHYSICAL THERAPY PATIENT ABLE TO AMBULATE DOWN THE ICU HALLWAY WITH GAITBELT AND WALKER. PATIENT TOLERATED ACTIVITY WELL.
--- NOTE | 2017-06-09 09:30 | NUR ---
DR. ANTONIO AT BEDSIDE DR. ANTONIO AT BEDSIDE ASSESSING THE PATIENT. DR. ANTONIO NOTIFIED ON PATIENT'S LOW POTASSIUM LEVEL OF 3.5. NEW ORDERS: POTASSIUM 20 MEQ DAILY AND PROTONIX 40 MG DAILY AND OBTAIN ECHOCARDIOGRAM. PATIENT WILL STAY IN ICU.
--- NOTE | 2017-06-09 10:00 | NUR ---
DISCHARGE PLAN CM VISITED WITH PATIENT CONCERNING HIS DISCHARGE PLAN AND NEED. PATIENT STATED HE LIVES AT HOME ALONE AND HE HAS ALWAYS BEEN LOUISE INDEPENDENT ON ADLS. PATIENT HAS WALKERS X4 AND A SHOWER CHAIR IN PLACE @ HOME. HE DENIES NEEDING FURTHER DME @ THIS TIME. PATIENT IS STILL DRIVING DAILY TO [employer] AND THE [employer] TO HAVE COFFEE. HE ALSO STATED HE HAS A GREAT SUPPORT SYSTEM THROUGH NEIGHBORS THAT ASSIST HIM NEEDED. EDUCATION GIVEN TO PATIENT REGARDING HOME HEALTH SERVICES AND BENEFITS DUE TO HOSPITAL ADMISSION S/P TIA. PATIENT STATED HE HAS HAD [facility] IN THE PAST AND WOULD WANT THEM. CM FAXED PATIENTS CLINICAL INFORMATION TO [facility] PER PATIENTS REQUEST. CM ALSO NOTIFIED [facility] AND SPOKE TO MARCI SUTTON RN REGARDING HH REFERRAL, HOSPITAL ADMISSION AND PATIENTS DISCHARGE PLAN. MARCI STATED [facility] WILL FOLLOW PATIENT UPON HOSPITAL DISCHARGE FOR PHYSICAL OR OCCUPATIONAL NEEDS. CURRENT GOAL FOR PATIENT IS TO RETURN HOME TO ROUTINE SELF CARE WITH [facility] UPON DISCHARGE. CM TO CONTINUE TO FOLLOW PATIENTS PLAN OF CARE AND FOR FURTHER DISCHARGE NEEDS.
--- NOTE | 2017-06-09 10:00 | NUR ---
OCCUPATIONAL THERAPY PATIENT EVALUATED BY SWALLOW/SPEECH THERAPY PATIENT PASSED.
[2017-06-09] MEDS: PROTONIX PO SCH (10:08)
[2017-06-09] MEDS: KLOR-CON 10 PO SCH (10:09)
--- NOTE | 2017-06-09 10:58 | NUR ---
PT at bedside a this time.
[2017-06-09] MEDS ORDERED: OCEAN NS PRN (11:00)
--- NOTE | 2017-06-09 16:05 | NUR ---
NEUROLOGICAL ASSESSMENT. PATIENT COMPLAINS OF WEAKNESS ON RIGHT ARM. PATIENT IS AWAKE, ALERT AND ORIENTED. PATIENT ABLE TO FOLLOW SIMPLE COMMANDS AND ABLE TO FOLLOW [facility] STROKE ASSESSMENT NOTED WEAKNESS ON RIGHT ARM AND RIGHT LEG. PATIENT HAS BILATERAL SENSATIONS ON UPPER AND LOWER EXTREMITIES. PATIENT VERBALLY TOLD NURSE THAT HE FEELS WEAKER ON HIS RIGHT SIDE JUST LIKE WHAT HE FELT LAST NIGHT AT HOME. DR. ANTONIO WAS NOTIFIED OVER THE PHONE. DR. ANTONIO INSTRUCTED NURSE TO CLOSELY MONITOR PATIENT AND COMPLETE NEURO CHECK OFTEN. NOTIFY DR. ANTONIO IF WEAKNESS GETS WORSE AND WE MAY START TPA.
[2017-06-09] MEDS: TYLENOL PO PRN (17:19)
--- NOTE | 2017-06-09 20:05 | NUR ---
PATIENT HAVING NEW ONSET OF CONFUSION CONTINUES TO HAVE WEAKNESS IN RIGHT UPPER EXTREMITY. SPEECH IS GARBLED. DR ANTONIO NOTIFIED. FAMILY CONTACTED TO MAKE FURTHER DECISIONS REGARDING CARE.
--- NOTE | 2017-06-09 20:12 | NUR ---
HEAD CT ORDERED RADIOLOGY ON UNIT TO TRANSFER PATIENT TO RADIOLOGY FOR CT. THIS NURSE SPOKE WITH DAUGHTER ON PHONE. DAUGHTER WOULD PREFER PATIENT TRANSFERRED IF NO ACUTE STROKE FOUND ON CT. DR ANTONIO NOTIFIED.
--- NOTE | 2017-06-09 20:50 | NUR ---
PATIENT RETURNED FROM RADIOLOGY. AWAITING RESULTS.
--- NOTE | 2017-06-09 21:29 | DIREP ---
PROCEDURE:CT HEAD OR BRAIN W/O CONTRAST COMPARISON:[facility], CT, CT HEAD BRAIN W/O CONTRAST, 06/08/2017, 07:09 PM. INDICATIONS:Progressive stroke symptoms TECHNIQUE:CT images were created without intravenous contrast. FINDINGS: VENTRICLES:There is moderate prominence of the ventricles and cortical sulci consistent with age related involutional changes. CEREBRUM:Moderate foci of diminished attenuation in the supratentorial white matter consistent with moderate leukoaraiosis. CEREBELLUM:Negative. BRAINSTEM:Negative. BASAL CISTERNS:Negative. HEMORRHAGE:No MASS LESION:No ACUTE INFARCT:No SKULL:Normal, except for small metallic foreign body about the left medial orbit. SINUSES:Normal. OTHER:Remote right temporal and left frontal infarction. Anterior C1 arch fracture again noted. CONCLUSION:Chronic changes. No definite acute infarct or hemorrhage. Otherwise, negative head CT. No change. Dictated by: Isidro Lr M.D. on 06/09/2017 at 09:27 PM
--- NOTE | 2017-06-09 21:33 | DIREP ---
PROCEDURE:CT ANGIOGRAPHY HEAD COMPARISON:[facility], CT, CT HEAD BRAIN W/O CONTRAST, 06/09/2017, 08:07 PM. INDICATIONS:Slurred speech TECHNIQUE:After obtaining the patient's consent, CT images of the head were obtained with non-ionic contrast, and with multi-planar/3-D imaging to optimize visualization of vascular anatomy. FINDINGS: VASCULATURE:Normal. VENTRICLES:Normal. CEREBRUM:Normal. CEREBELLUM:Normal. BRAINSTEM:Normal. BASAL CISTERNS:Normal. SKULL:Normal. OTHER:No aneurysm, vascular malformation, stenosis, or occlusion. CONCLUSION:Normal examination. Dictated by: Isidro Lr M.D. on 06/09/2017 at 09:29 PM
--- NOTE | 2017-06-09 21:40 | NUR ---
CT RESULTS RECEIVED NO ACUTE PROBLEMS IDENTIFIED. DR ANTONIO ON PHONE WITH PATIENT FAMILY.
[2017-06-09] MEDS: LIPITOR PO SCH (21:49)
[2017-06-09 22:02] LABS: CALCIUM 8.9 mg/dL (8.4-10.5); CARBON DIOXIDE 28.6 mmol/L (20.0-32)
--- NOTE | 2017-06-09 22:54 | DIREP ---
PROCEDURE:CAROTID ULTRASOUND COMPARISON:[facility], US, US DOPPLER CAROTID BILATERAL, 12/20/2016, 01:19 PM. INDICATIONS:CVA with right side weakness TECHNIQUE:Sonographic evaluation of carotid and vertebral arteries was performed together with grayscale, color-flow, and spectral analysis. FINDINGS: RIGHT CCA:89.72 cm/s RIGHT ICA: PROX:63.98 cm/s MID:68.06 cm/s DIST:64.18 cm/s RIGHT ECA:75.29 cm/s RIGHT ICA/CC:0.76 RIGHT VERTEBRAL:44.77 cm/s IMAGES: Trace plaque is seen in the proximal right internal carotid artery just after the bifurcation. LEFT CCA:114.59 cm/s LEFT ICA: PROX:73.68 cm/s MID:74.53 cm/s DIST:73.23 cm/s LEFT ECA:71.94 cm/s LEFT ICA/CCA:0.65 LEFT VERTEBRAL:38 cm/s IMAGES:Trace plaque is seen in the proximal left internal carotid artery just at and after the bifurcation. CONCLUSION:Peak systolic velocities and ICA to CCA ratio within normal limits. Mild atherosclerotic plaque in the proximal internal carotid arteries bilaterally. Diameter Stenosis (%)ICA Peak Systolic Velocity (cm/s)ICA/CCA RatioNormal<125<2.0<50<125<[id number] to near occlusion>230>4J Ultrasound Med 2005; 24:3689-1065 Dictated by: Calixto Lynch MD on 06/09/2017 at 10:50 PM
[2017-06-10] VITALS (25 sets, daily range): BP systolic 115–167; BP diastolic 56–114
--- NOTE | 2017-06-10 00:14 | NUR ---
SPEECH PATTERN HAS IMPROVED PATIENT IS ABLE TO SPEAK CLEAR SENTENCES AT THIS TIME. PATIENT STILL SLIGHTLY DISORIENTED TO TIME. ORIENTED TO PLACE AND PERSON.
--- NOTE | 2017-06-10 00:55 | PNH ---
DATE: 06/09/2017 SUBJECTIVE: He states he is feeling better. He did have an episode of repeat right upper and right lower extremity, that was temporary during his assessment today. His weakness seems to wax and wane somewhat at this time. He denied any chest pain or difficulty breathing. No other acute events overnight. OBJECTIVE: VITAL SIGNS: T-max the last 24 hours was 98.7 degrees Fahrenheit, pulse 93, respiratory rate 28, blood pressure 120/72 mmHg, and O2 saturation 90% on room air. GENERAL: He was alert, in no acute distress at the time of exam. HEENT: Pupils were equal, round, and reactive to light. Sclerae were anicteric. Oropharynx was clear. Mucous membranes were moist. NECK: The neck was supple, no lymphadenopathy. CARDIOVASCULAR: At the time of exam was regular rate and rhythm. LUNGS: Improved aeration bilaterally, no wheezing. ABDOMEN: The abdomen was soft. Bowel sounds were present. Nontender to palpation. EXTREMITIES: No cyanosis, clubbing, or significant edema. NEUROLOGIC: Grossly nonfocal. LABORATORY DATA: CMP: Sodium 141, potassium 3.5, chloride 103, CO2 30, BUN 12, creatinine 1.06, glucose 84, calcium 9.2, total bilirubin 0.6, AST 22, ALT 21, alkaline phosphatase 77, total CK 87, CK-MB 1.9, troponin I is less than 0.02, C-reactive protein 0.09, total protein 6.6, albumin 3.6. LDL 136 and HDL 74. CBC: White count 4.4, hemoglobin 13.2, and platelets 210. DIFFERENTIAL: 36% neutrophils, 45% lymphocytes, and 14% monocytes. ASSESSMENT AND PLAN: The patient is an 81-year-old man here with an acute CVA in the left middle cerebral distribution with right upper and right lower extremity weakness, hypertension, coronary artery disease, anemia due to chronic disease, congestive heart failure, systolic and diastolic dysfunction is chronic. 1. Will continue his cardiovascular medications at the current dose. 2. Bilateral carotid ultrasounds have been ordered. He was started on a statin. 3. PT, OT, and Speech evaluation and treatment for the recent cerebrovascular accident. 4. Continue some IV fluid hydration at this point. On presentation, he was clinically dehydrated, but it has significantly improved. 5. Lipid panel does show dyslipidemia. He was started on a statin due to the cerebrovascular accident. 6. DVT prophylaxis with SCDs. Time spent with the patient: 25 minutes. This plan was discussed with the patient and his son, and they do understand and concur. NOTE ADDENDUM: Called to ICU late yesterday evening with new onset slurred speech. Called tele -neurology, obtained CTA head which was read as normal examination. Per discussion with Neurology no escalation of care required - will continue aspirin and statin and monitor in ICU for progression or resolution of symptoms. Family discussion held via phone and they do understand and agree with plan. They requested Case Management assistance with possible SNF placement in the [facility]. Time spent on additional services 06/09/17 in the evening is 1.5 hours. Moy Li MD DR: SEAN/bryan JOB# [id number] DICK
[2017-06-10] MEDS: TYLENOL PO PRN (04:01)
[2017-06-10] MEDS: KLOR-CON 10 PO SCH (09:25)
[2017-06-10] MEDS: PROTONIX PO SCH (09:25)
[2017-06-10] MEDS: ZESTRIL PO SCH (09:25)
[2017-06-10] MEDS: FLOMAX PO SCH (09:26)
[2017-06-10] MEDS: LASIX PO SCH (09:26)
[2017-06-10] MEDS: ASPIRIN EC PO SCH (09:26)
[2017-06-10] MEDS: LOPRESSER PO SCH ×2 (09:27→20:26)
--- NOTE | 2017-06-10 10:43 | NUR ---
D/C UPDATE/SNF REFERRAL: SS VISITED WITH PT'S DAUGHTER SIMA BONILLA WHO STATED "I WOULD PREFER MY DAD TO DO REHAB HERE IN [place], SINCE WE HAVE A BETTER FAMILY SUPPORT SYSTEM HERE AND ME AND MY FIVE GROWN DAUGHTERS COULD CHECK ON HIM DAILY". SS LET PT'S DAUGHTER KNOW SHE WOULD VISIT WITH PT AND IF HE AGREED SHE WOULD SEND IT OVER. PT'S DAUGHTER ASKED IF EMS COULD TRANSPORT SINCE THEY HAVE TRANSPORTED HIM TO [place] BEFORE AND [place] IS NOT FAR. SS LET PT'S DAUGHTER KNOW THAT THEY WERE ABLE TO TRANSPORT HIM SINCE IT WAS A HOSPITAL HIGH LEVER OF CARE TRANSFER, BUT THEY WOULD NOT BE ABLE TO TRANSFER TO SNF AT [place] UNLESS THEY WOULD LIKE TO PRIVATE PAY. PT'S DAUGHTER STATED HER SISTER FROM [place] WILL COME UP AND TAKE PT TO [place] TUESDAY. SS VISITED WITH PT REGARDING SNF AND PT WAS ON BOARD. PT STATED "I CAN'T EVEN WALK RIGHT NOW, I WOULD BE FINE GOING TO BE CLOSER TO MY DAUGHTER LONG THEY WILL HELP ME BOARD STUFF SO PEOPLE DON'T STEAL ANYTING WHILE I'M GONE". SS NOTIFIED PT'S DAUGHTER SIMA OF PT'S CONCERNS AND SHE STATED " I WILL HAVE MAIN GOMES GO OVER AND BOARD UP THE HOUSE AND MOVE THE TRACTOR". SS CONTACTED [facility] AND FAXED OVER PT'S CLINICAL. PT IS PENDING ACCEPTANCE INTO [facility] AT THIS TIME.
--- NOTE | 2017-06-10 15:06 | NUR ---
SNF APPROVAL: SS FOLLOWED UP WITH [facility] AND SPOKE TO WILLIE WHO STATED THAT PT WAS ACCEPTED TO COME ON TUESDAY. DAUGHTER WILL TRANSPORT NO FURTHER NEEDS NOTED AT THIS TIME.
--- NOTE | 2017-06-10 19:50 | NUR ---
Assumed care of patient resting in bed. Denies any needs at this time.
[2017-06-10] MEDS: LIPITOR PO SCH (20:26)
--- NOTE | 2017-06-10 20:40 | NUR ---
Patient used his urinal. Provided pm medications. No further needs.
--- NOTE | 2017-06-10 22:45 | NUR ---
Patient in bed asleep off and on. Call barajas in reach.
[2017-06-11] VITALS (14 sets, daily range): BP systolic 125–190; BP diastolic 75–109
--- NOTE | 2017-06-11 00:02 | NUR ---
At the bedside for temp. Patient woke up a little confused from possible dream. Said he was hearing noises and to call the insulation worker apprentice. Reoriented him and informed him everything was fine.
--- NOTE | 2017-06-11 01:40 | PNH ---
DATE: 06/10/2017 SUBJECTIVE: The patient was seen in the Intensive Care Unit. He is still having waxing and waning focal neurologic deficits. This morning at the time of exam, he had significant right upper extremity weakness, which was worse than yesterday. Speech has somewhat improved. Overnight, he had acute onset of slurred speech. A CT angiogram was done and a consult was made with Teleneurology and they decided that he was at maximum medical benefit and no need for a transfer into a stroke center and to continue the current medical therapy. OBJECTIVE: VITAL SIGNS: T-max the last 24 hours was 98.7 degrees Fahrenheit, pulse 72, respiratory rate 15, blood pressure 130/79 mmHg, and O2 saturation 96% on room air. GENERAL: He was alert and in no acute distress at the time of exam. HEENT: Pupils were equal, round, and reactive to light. Sclerae were anicteric. Oropharynx was clear. Mucous membranes were moist. NECK: The neck was supple, no lymphadenopathy. CARDIOVASCULAR: At the time of exam was regular rate and rhythm. PULMONARY: The lungs were clear bilaterally, no wheezing. ABDOMEN: The abdomen was soft. Bowel sounds are present. Nontender to palpation. EXTREMITIES: No cyanosis, clubbing, or significant edema. NEUROLOGIC: He has significant right upper extremity weakness, about 3/5, the right lower extremity is 2/5, all else is at baseline. ASSESSMENT AND PLAN: The patient is an 81-year-old man here with an acute CVA that has not completed at this time and is still having focal neurologic deficits, with hypertension, coronary artery disease, anemia due to chronic disease, congestive heart failure, and systolic and diastolic dysfunction. 1. From a neurologic standpoint, we will continue monitoring him in the ICU since his symptoms still continues to progress. Continue full dose aspirin and statin. Follow up on carotid ultrasounds and echocardiogram results. 2. PT, OT, and Speech evaluation and treatments. 3. I had a discussion with the patient's daughter. They will do want to consider a detention facility close to the family, which will be in the [facility]. 4. The lipid panel does show dyslipidemia. He is on a statin. Continue the statin at the current dose. 5. Continue blood pressure medications and titrate as indicated to control hypertension. 6. DVT prophylaxis with SCDs. Time spent with the patient on June 10, 2017: 35 minutes. The patient was seen in Intensive Care Unit and the plan was discussed with the patient and he does understand and concurs. Moy Li MD DR: SEAN/bryan JOB# [id number]
--- NOTE | 2017-06-11 02:58 | NUR ---
Patient sat up on the side of the bed to use urinal. Patient likes to be as independent as possible. Offered water.
--- NOTE | 2017-06-11 04:55 | NUR ---
While trying to sit up on the side of the bed to void, the patient accidently pulled out the IV. Cleaned the site and held pressure for 3 minutes. Cotton ball and tape to site.
[2017-06-11 05:11] LABS: BASOPHIL % 0.5 % (0.0-0.2); EOSINOPHIL # 0.2 10^3/uL (0.0-0.2); EOSINOPHIL % 2.6 % (0.0-5.0); HEMOGLOBIN 13.3 g/dL (13.9-16.3); LYMPHOCYTES # 2.4 10^3/uL (1.0-4.8); MEAN CELL HGB 30.9 pg (26-34); MEAN CELL HGB CONCENTRATION 32.7 g/dL (33-37); MEAN CORP VOLUME 94.4 fL (78-100); MEAN PLATELET VOLUME 9.7 fL (7.8-11.0); MONOCYTES # 0.8 10^3/uL (0.3-0.8); MONOCYTES % 14.2 % (5.0-12.0); NEUTROPHIL # 2.3 10^3/uL (1.8-7.7); NEUTROPHILS % 39.8 % (41.0-85.0); RED CELL DISTRIBUTION WIDTH 13.1 % (11.5-14.5); WHITE BLOOD CELL 5.8 10^3/uL (4.5-11.0)
[2017-06-11 06:23] LABS: CARBON DIOXIDE 27.7 mmol/L (20.0-32)
[2017-06-11 06:24] LABS: CALCIUM 9.2 mg/dL (8.4-10.5)
--- NOTE | 2017-06-11 06:40 | NUR ---
Report to oncoming shift.
[2017-06-11] MEDS: FLOMAX PO SCH (08:14)
[2017-06-11] MEDS: KLOR-CON 10 PO SCH (08:15)
[2017-06-11] MEDS: LOPRESSER PO SCH ×2 (08:15→21:40)
[2017-06-11] MEDS: ZESTRIL PO SCH (08:16)
[2017-06-11] MEDS: TYLENOL PO PRN ×2 (08:16→19:01)
[2017-06-11] MEDS: PROTONIX PO SCH (08:17)
[2017-06-11] MEDS: LASIX PO SCH (08:17)
[2017-06-11] MEDS: ASPIRIN EC PO SCH (08:17)
[2017-06-11] MEDS ORDERED: OCEAN NS PRN (11:00)
--- NOTE | 2017-06-11 13:35 | NUR ---
ARRIVAL PT ARRIVED TO RM [id number] AT THIS TIME. REPORT RECEIVED AND ASSUMED CARE OF PT
--- NOTE | 2017-06-11 14:15 | NUR ---
INPATIENT TRANSFER PATIENT TRANSFERRED TO MEDICAL FLOOR ROOM 314 CLOSE TO NURSES STATION. ALL BELONGINGS SENT TO LANE PATIENT. REPORT GIVEN TO TOSIN WHITE.
--- NOTE | 2017-06-11 18:31 | NUR ---
REPORT REPORT GIVEN TO ONCOMING SHIFT AND CARE RELINQUISHED
--- NOTE | 2017-06-11 18:35 | NUR ---
report received report from offgoing shift
[2017-06-11] MEDS ORDERED: SENOKOT PO PRN (21:00)
[2017-06-11] MEDS: LIPITOR PO SCH (21:39)
[2017-06-12] MEDS: TYLENOL PO PRN ×2 (00:06→09:12)
[2017-06-12 00:17] VITALS: BP 130/100
--- NOTE | 2017-06-12 00:19 | NUR ---
bp reported to patricia BRAN
--- NOTE | 2017-06-12 01:04 | PNH ---
DATE: 06/11/2017 SUBJECTIVE: He had no acute new neurologic deficits last night. He did still have some right upper extremity weakness. He also appears depressed. He has some social issues that are bothering him also. No other acute events overnight. OBJECTIVE: VITAL SIGNS: T-max the last 24 hours was 98.6 degrees Fahrenheit, pulse 78, respiratory rate 14, blood pressure 145/95 mmHg, and O2 saturation 97% on room air. GENERAL: He was alert and in no acute distress at the time of exam. HEENT: Pupils were equal, round, and reactive to light. Sclerae were anicteric. Oropharynx was clear. Mucous membranes were moist. NECK: The neck was supple, no lymphadenopathy. CARDIOVASCULAR: At the time of exam was regular rate and rhythm. PULMONARY: The lungs were clear bilaterally, no wheezing. ABDOMEN: The abdomen was soft. Bowel sounds are present. Nontender to palpation. EXTREMITIES: No cyanosis, clubbing, or significant edema. NEUROLOGIC: Grossly nonfocal other than some about 4/5 right upper extremity weakness. LABORATORY DATA: CBC: White count 5.8, hemoglobin 13.3, and platelets 218. DIFFERENTIAL: 40% neutrophils, 42% lymphocytes, and 14% monocytes. CMP: Sodium 138, potassium 4.0, chloride 104, CO2 27, BUN 15, creatinine 1.16, glucose 88, calcium 9.2, total bilirubin 0.7, AST 20, ALT 21, alkaline phosphatase 80, total protein 6.5, and albumin 3.6. ASSESSMENT AND PLAN: The patient is an 81-year-old man here with an acute CVA, with no new focal neurologic deficits in the last 12 hours, with a history of hypertension, coronary artery disease, anemia due to chronic disease, congestive heart failure, systolic and diastolic dysfunction. 1. From a neurologic standpoint, he is optimized. Continue the full dose aspirin and statin. He started the statin on this admission. 2. Continue his cardiovascular medications at the current dose. 3. PT and OT evaluation and treatment. 4. Case management for jail placement. 5. DVT prophylaxis with SCDs. Time spent with the patient: 25 minutes Moy Li MD DR: SEAN/bryan JOB# [id number]
[2017-06-12 04:06] VITALS: BP 136/98
--- NOTE | 2017-06-12 06:30 | NUR ---
sponge bath sponge bath done on pt. Change linens and put a new gown.
--- NOTE | 2017-06-12 07:03 | NUR ---
REPORT REPORT GIVEN TO O/C SHIFT
[2017-06-12 07:34] VITALS: BP 174/99
[2017-06-12] MEDS: ZESTRIL PO SCH (09:11)
[2017-06-12] MEDS: LOPRESSER PO SCH ×2 (09:11→20:47)
[2017-06-12] MEDS: FLOMAX PO SCH (09:11)
[2017-06-12] MEDS: KLOR-CON 10 PO SCH (09:11)
[2017-06-12] MEDS: ASPIRIN EC PO SCH (09:12)
[2017-06-12] MEDS: LASIX PO SCH (09:12)
[2017-06-12] MEDS: PROTONIX PO SCH (09:13)
[2017-06-12 12:18] VITALS: BP 152/98
--- NOTE | 2017-06-12 18:35 | NUR ---
Report Received bedside report from Tonja Mckinney RN
[2017-06-12] MEDS: LIPITOR PO SCH (20:47)
[2017-06-12 20:51] VITALS: BP 122/87
--- NOTE | 2017-06-12 21:52 | NUR ---
Patietn sitting up on side of bed. Denies pain at this time. Will continue to monitor. Call light within reach.
[2017-06-13 01:23] VITALS: BP 126/97
--- NOTE | 2017-06-13 01:58 | NUR ---
Patient resting in bed with eyes closed. Resp even and non labored. No s/s of distress noted at this time. Will continue to monitor. Call light within reach.
--- NOTE | 2017-06-13 06:42 | NUR ---
Report Report given to Tonja Valentin RN
[2017-06-13 08:39] VITALS: BP 169/91
[2017-06-13] MEDS: LOPRESSER PO SCH (08:45)
[2017-06-13] MEDS: PROTONIX PO SCH (08:45)
[2017-06-13] MEDS: ZESTRIL PO SCH (08:45)
[2017-06-13] MEDS: KLOR-CON 10 PO SCH (08:46)
[2017-06-13] MEDS: LASIX PO SCH (08:46)
[2017-06-13] MEDS: ASPIRIN EC PO SCH (08:46)
[2017-06-13] MEDS: FLOMAX PO SCH (08:46)
[2017-06-13] MEDS ORDERED: LISI10TA2 PO (09:40)
[2017-06-13] MEDS ORDERED: METO25TA4 PO (09:40)
[2017-06-13] MEDS ORDERED: POTA10TA6 PO (09:40)
[2017-06-13] MEDS ORDERED: ASPI325T17 PO (09:40)
[2017-06-13] MEDS ORDERED: ATOR20TA PO (09:40)
--- NOTE | 2017-06-13 09:47 | PRM.DC ---
Discharge Summary Date of Discharge: Jun 13, 2017 Reason for Visit: CVA Patient History: Alzheimer's disease G8 BROTHER Asthma G8 BROTHER Diabetes mellitus G8 BROTHER G8 SISTER History Present Illness: (1) CVA (cerebral vascular accident) Status: Acute ICD Code: I63.9 - Cerebral infarction, unspecified SNOMED: 017740545 Assessment & Plan: Aspirin and statin daily PT/OT at SNF (2) CHF (congestive heart failure) SEVERITY: MILD PERSISTENT Status: Chronic ICD Code: I50.9 - Heart failure, unspecified SNOMED: 66179818 Assessment & Plan: Continue current medical management (3) CAD (coronary artery disease) SEVERITY: MILD PERSISTENT Status: Chronic ICD Code: I25.10 - Atherosclerotic heart disease of [place] coronary artery without angina pectoris SNOMED: 78731006 Assessment & Plan: Continue current cardiac medications General: Alert, Oriented X3, Cooperative, No acute distress HEENT: PERRLA, EOMI, Mucous membr. moist/pink Neck: Supple, No JVD Lungs: Clear to auscultation, Normal air movement Heart: Regular rate, Normal S1, Normal S2 Abdomen: Normal bowel sounds, Soft, No tenderness Extremities: No clubbing, No cyanosis, No edema Skin: No breakdown, No significant lesion Neuro: Normal speech, Cranial nerves 3-12 NL, Other (RUE 4/5) Psych/Mental Status: Mental status NL, Mood NL Scheduled Aspirin (Aspirin Ec), 325 MG PO DAILY Atorvastatin 20MG (Lipitor 20MG), 20 MG PO HS Clonidine Hcl (Clonidine Hcl), 0.1 MG PO BID, (Reported) Furosemide (Lasix), 20 MG PO DAILY Lisinopril (Lisinopril), 10 MG PO DAILY Metoprolol Tartrate 25MG (Lopresser 25MG), 12.5 MG PO BID Potassium Chloride (Klor-Con 10), 10 MEQ PO DAILY Tamsulosin Hcl (Tamsulosin Hcl), 1 CAP PO DAILY, (Reported) Discontinued Medications Allopurinol (Allopurinol), 100 MG PO BID, (Reported) Discontinued Reason: Discontinue Losartan Potassium (Losartan Potassium), 1 TAB PO DAILY, (Reported) Discontinued Reason: No Longer Taking Potassium Chloride (Potassium Chloride), 1 TAB PO DAILY Discontinued Reason: No Longer Taking Sepsis Evaluation @ Discharge Course Blood Pressure Systolic: 169 Blood Pressure Diastolic: 91 Blood Pressure Mean: 117 Notes Mr Novak presented to the ER with an acute CVA. He did not meet criteria for thrombolytics. He was started on aspirin and a statin. PT/OT and Speech were consulted. He did clinically improve but still required therapy for ambulation and ADLs. SNF was arranged near his family. Plan Discharge Date: Jun 13, 2017 Dicharge DX: 1. CVA, 2. Hypertension, 3. Dyslipidemia, 4. BPH Plan Medications per discharge list Diet and activity as tolerated PT/OT evaluation and treatment at SNF Plans discussed with patient and family Time spent 35 minutes Problem Qualifiers (1) CVA (cerebral vascular accident): CVA mechanism: occlusion Laterality of affected vessel: unspecified (2) CHF (congestive heart failure): Congestive heart failure type: diastolic Congestive heart failure chronicity: chronic Qualified Codes: I50.32 - Chronic diastolic (congestive) heart failure (3) CAD (coronary artery disease): Coronary Disease-Associated Artery/Lesion type: [place] artery [place] vs. transplanted heart: [place] heart Associated angina: without angina Qualified Codes: I25.10 - Atherosclerotic heart disease of [place] coronary artery without angina pectoris SARIAH ANTONIO MD Jun 13, 2017 09:47
[2017-06-13 11:05] VITALS: BP 169/91
--- NOTE | 2017-06-13 11:05 | NUR ---
DISCHARGE PT DISCHARGED AT THIS TIME. PT DENIED ANY PAIN OR DISCOMFORT. PT WAS X2 MAX ASSIST TO WHEELCHAIR FROM CHAIR. PT IS LEAVING TO [facility]. REPORT TO BE CALLED IN. PT IS ACCOMPANIED BY DAUGHTER FOR TRANSPORTATION BY PRIVATE VEHICLE. NO OTHER QUESTIONS OR CONCERNS NOTED BY PT OR FAMILY
--- NOTE | 2017-06-13 15:37 | NUR ---
REPORT CALLED TO [facility] AT THIS TIME.
--- NOTE | 2017-06-14 04:38 | PNH ---
DATE: 06/12/2017 SUBJECTIVE: He appears clinically depressed, but no other acute changes. He is working with Physical Therapy and Occupational Therapy. He is tolerating a diet fairly well. OBJECTIVE: VITAL SIGNS: T-max the last 24 hours was 98.3 degrees Fahrenheit, pulse 92, respiratory rate 16, blood pressure 122/87 mmHg, and O2 saturation 95% on room air. GENERAL: He was alert and in no acute distress at the time of exam. HEENT: Pupils were equal, round, and reactive to light. Sclerae were anicteric. Oropharynx was clear. Mucous membranes were moist. NECK: The neck was supple, no lymphadenopathy. CARDIOVASCULAR: At the time of exam was regular rate and rhythm. PULMONARY: Lungs decreased at the bases, with shallow inspiratory effort. ABDOMEN: The abdomen was soft. Bowel sounds were present. Nontender to palpation. EXTREMITIES: No cyanosis, clubbing, or significant edema. NEUROLOGIC: At the time of exam had some continued mild right upper extremity weakness. LABORATORY DATA: Not checked today. His labs have been fairly normal or close to normal within the last 24 hours, with only mild anemia. ASSESSMENT AND PLAN: The patient is an 81-year-old man here with a recent CVA, with anemia of chronic disease, congestive heart failure, systolic and diastolic dysfunction, coronary artery disease, and hypertension. 1. Neurologic: We will continue aspirin and statin with PT and OT. 3. Continue his cardiovascular medications at the current dose. 4. Recommend snf placement. 5. DVT prophylaxis with SCDs. Time spent on June 12, 2017: 25 minutes Moy Li MD DR: SEAN/bryan JOB# [id number]
--- NOTE | 2017-06-14 17:54 | ECHO ---
DATE OF SERVICE: 06/09/2017 INDICATIONS: CHF, findings in an 81-year-old gentleman. FINDINGS: 1. Study quality was fair. 2. Underlying rhythm is sinus rhythm. 3. Overall, EF is around 40%. There is severe concentric LVH with increased septal thickness. 4. LV dimensions were decreased due to LVH. Apical hypokinesia was noted. 5. RV size is normal. RVEF is normal. 6. There is a heavily calcified mass, which might represent old vegetation or calcification of the wire artifact in the right heart chamber involving the right tricuspid valve. 7. Right ventricular systolic pressure was around 35-40 mmHg, by Doppler signal exam across the tricuspid regurgitation, which is moderate in severity. 8. Calcified mitral valve, mild regurgitation, no stenosis. 9. Mitral valve gradient was 1 mmHg. Therefore, no stenosis noted. 10. Aortic valve velocity was 0.7 meter per second, aortic valve area of 3 cm2 with minimal regurgitation by color exam. 11. The study is unable to identify the heavily calcified mass in the right heart chamber closed in the ventricular side of the tricuspid valve. IMPRESSION: A transesophageal echocardiogram is highly recommended or further imaging studies of the chest might be recommended. Luciano Reeves MD DR: VALERIA/bryan JOB# [id number]
== END 2017-06-13 11:05 | DRG 65 ==
LOC: ER 18:56 → EDBD 18:56 → ICU 21:05 → MS 06-11 13:48 → UNDODISIN 06-11 14:27
PROVIDERS: ADMIT Internal Medicine; ATTEND Internal Medicine
DX: I63.9 Cerebral infarction, unspecified (principal); I50.42 Chronic combined systolic (congestive) and diastolic (congestive) heart failure; G81.91 Hemiplegia, unspecified affecting right dominant side; I27.20 Pulmonary hypertension, unspecified; I11.0 Hypertensive heart disease with heart failure; D63.8 Anemia in other chronic diseases classified elsewhere; E86.0 Dehydration; N40.0 Benign prostatic hyperplasia without lower urinary tract symptoms; E78.5 Hyperlipidemia, unspecified; I25.10 Atherosclerotic heart disease of native coronary artery without angina pectoris; I73.9 Peripheral vascular disease, unspecified; M10.9 Gout, unspecified; Z79.82 Long term (current) use of aspirin; Z87.891 Personal history of nicotine dependence; Z82.0 Family history of epilepsy and other diseases of the nervous system; Z83.3 Family history of diabetes mellitus; Z82.5 Family history of asthma and other chronic lower respiratory diseases; Z79.899 Other long term (current) drug therapy; Z95.810 Presence of automatic (implantable) cardiac defibrillator; Z60.2 Problems related to living alone
CPT/HCPCS: 36415; 70450; 70496; 71010; 80048; 80053; 80061; 81002; 82550; 82553; 84484; 85025; 85610; 85730; 86140; 92610; 93005; 93307; 93880; 97161; 97166; 99285; J3480; Q9967; 97110-GP; 97116-GP; 97530-GP; 97535-GO; G8978-CI; G8979-CI; G8987; G8988; G8996-CH; G8997-CH; G8998-CH